=== PATIENT | female | born 1960 | race African-American/Black ===

== ENCOUNTER 2016-04-15 08:50 | Emergency (ER) | payer BC, OTHER ==
[2016-04-15 08:59] VITALS: BP 159/116; PULSE 79; TEMP 98.1; BMI 30.4
[2016-04-15] MEDS ORDERED: MECLIZINE HCL 25 MG TABLET (FP) PO ONE (09:42)
[2016-04-15] MEDS ORDERED: METOCLOPRAMIDE HCL INJECTION 10 MG/2 ML VIAL IVPUSH ONE (09:52)
[2016-04-15] MEDS ORDERED: METOCLOPRAMIDE HCL INJECTION 10 MG/2 ML VIAL ONE (10:36)
[2016-04-15] MEDS ORDERED: MECLIZINE HCL 25 MG TABLET (FP) ONE (10:36)
--- NOTE | 2016-04-15 10:45 | PDOC ---
History of Present Illness - General Chief Complaint: Injury Stated Complaint: FALL/ BODY ACHES, BACK PAIN Time Seen by Provider: 04/15/16 09:20 - History of Present Illness Initial Comments: 04/15/16 11:10 Patient is a 56-year-old female with no past medical history presenting to the ED today after falling on ice on Friday04/12/16. Patient states that while she was walking on her driveway she slipped on ice and her feet came out from underneath her. Patient states that she fell on her butt and then landed on her back and hit her head on the ice. Patient denies loss of consciousness at that time. She states that she felt dizzy after the fall. She is also complaining of headache 4 days. She's been taking ibuprofen for her pain with little relief. She currently rates her headache a 9 out of 10. She states that her neck and back have been very sore. She came in for evaluation today because she was worried that she was waking up with the same headache. The headache does not change in intensity for him lying down to sitting up. She denies photophobia phonophobia. Denies numbness and tingling. Denies fevers chills chest pain palpitations shortness of breath or cough nausea vomiting diarrhea. Past History - Past Medical History Allergies/Adverse Reactions: Allergies Allergy/AdvReac Type Severity Reaction Status Date / Time No Known Allergies Allergy Verified 04/15/16 08:53 Home Medications: Ambulatory Orders Cyclobenzaprine HCl [Flexeril -] 10 mg PO HS #10 tablet 04/15/16 Ibuprofen 800 mg PO TID #30 tablet 04/15/16 Meclizine HCl 25 mg PO BID #20 tablet 04/15/16 Other medical history: pt denies - Psycho/Social/Smoking Cessation Hx Suicidal Ideation: No Smoking History: Never smoked Have you smoked in the past 12 months: No Information on smoking cessation initiated: No Hx Alcohol Use: No Drug/Substance Use Hx: No Substance Use Type: None *Physical Exam - Vital Signs Last Vital Signs Temp Pulse Resp BP Pulse Ox 98.1 F 79 18 159/116 100 04/15/16 08:54 04/15/16 08:54 04/15/16 08:54 04/15/16 08:54 04/15/16 08:54 - Physical Exam Comments: 04/15/16 11:15 GENERAL: Well developed, well nourished. Awake and alert. No acute distress. HEENT: Normocephalic, atraumatic. PERRLA, EOMI. (-) racoon sign, walton sign. No conjunctival pallor. Sclera are non-icteric. Moist mucous membranes. Ear canals b/l are free of blood, TM are pearly hanson with good landmark and cone of light is present. Oropharynx is clear. NECK: Supple. Full ROM. (+) TTP of lateral neck and shoulders. No JVD. Carotid pulses 2+ and symmetric, without bruits. No thyromegaly. No lymphadenopathy. CARDIOVASCULAR: Regular rate and rhythm. No murmurs, rubs, or gallops. Distal pulses are 2+ and symmetric. PULMONARY: No evidence of respiratory distress. Lungs clear to auscultation bilaterally. No wheezing, rales or rhonchi. ABDOMINAL: Soft. Non-tender. Non-distended. No rebound or guarding. No organomegaly. Normoactive bowel sounds. MUSCULOSKELETAL Normal range of motion at all joints. No bony deformities or tenderness. No CVA tenderness. EXTREMITIES: No cyanosis. No clubbing. No edema. No calf tenderness. SKIN: Warm and dry. Normal capillary refill. No rashes. No jaundice. NEUROLOGICAL: Alert, awake, appropriate. Cranial nerves 2-12 intact. No deficits to light touch and temperature in face, upper extremities and lower extremities. No motor deficits in the in face, upper extremities and lower extremities. Normoreflexic in the upper and lower extremities. Normal speech. Toes are down- going bilaterally. Gait is normal without ataxia. (-) rhombergs sign. PSYCHIATRIC: Cooperative. Good eye contact. Appropriate mood and affect. ED Treatment Course - RADIOLOGY Radiology Studies Ordered: Category Date Time Status HEAD CT WITHOUT CONTRAST [CT] Stat CT Scan 04/15/16 09:50 Ordered SPINE-CERVICAL [RAD] Stat Radiology 04/15/16 09:52 Ordered SPINE-LUMBAR SACRAL [RAD] Stat Radiology 04/15/16 09:52 Ordered SPINE-THORACIC [RAD] Stat Radiology 04/15/16 09:52 Ordered - Medications Given in the ED: ED Medications Discontinued Medications Generic Name Dose Route Start Last Admin Trade Name Freq PRN Reason Stop Dose Admin Diphenhydramine HCl 12.5 mg 04/15/16 09:52 04/15/16 10:34 Benadryl Injection - IVPUSH 04/15/16 09:53 12.5 mg ONCE ONE Administration Meclizine HCl 25 mg 04/15/16 09:42 04/15/16 10:34 Antivert - PO 04/15/16 09:43 25 mg ONCE ONE Administration Metoclopramide HCl 10 mg 04/15/16 09:52 04/15/16 10:34 Reglan Injection - IVPUSH 04/15/16 09:53 10 mg ONCE ONE Administration Medical Decision Making - Medical Decision Making 04/15/16 11:19 Patient is a 56-year-old female presenting to the ED after slip and fall. She has no past medical history. Neurological exam is normal. Given that she's had a headache for the past 3 days with no relief and the traumatic slip and fall will evaluate for any bleed. We'll also obtain x-ray of C-spine and thoracic spine and lumbar sacral spine. We will give her Reglan and Benadryl for headache. We will reevaluate. 1. CT head, xray c-spine, thoracic spine, lumbosacral spine. 2. IV reglan with benadryl for headache 3. Re-evaluate 04/15/16 13:[address] shows no evidence of acute intracranial hemorrhage, edema, midline shift , mass effect, or skull fracture. No CT evidence of acute territorial infarction. C-spine x-ray shows no acute bony abnormalities. Multilevel chronic degenerative discogenic disease is present. No evidence of subluxation. Lumbar spine x-ray shows no acute bony abnormalities. No compression deformities spondylolisthesis seen. Thoracic spine x-ray shows no acute bony abnormalities. Discharge home at this time. There is no evidence of intracranial hemorrhage or skull fracture. No fractures are noted throughout the spine. Headache and dizziness is most likely due to concussive symptoms. Explained to patient that she may feel this way for up to 2 weeks. If the symptoms do not resolve within that time she should go see her primary care doctor. Patient feels better after headache medication and meclizine. We will discharge home with pain control and Flexeril and meclizine. *DC/Admit/Observation/Transfer Diagnosis at time of Disposition: Concussion Qualifiers: Encounter type: initial encounter Loss of consciousness presence/duration: without LOC Qualified Code(s): S06.0X0A - Concussion without loss of consciousness, initial encounter - Discharge Dispostion Disposition: HOME Condition at time of disposition: Good Admit: No - Prescriptions Prescriptions: Cyclobenzaprine HCl [Flexeril -] 10 mg PO HS #10 tablet Ibuprofen 800 mg PO TID #30 tablet Meclizine HCl 25 mg PO BID #20 tablet - Referrals Referrals: Live Holm MD [Primary Care Provider] - - Patient Instructions Printed Discharge Instructions: DI for Concussion Additional Instructions: You have a concussion. You may experience headache, dizziness for up to 2 weeks. Avoid activities that require close visual focus such as reading a book or cell phone. You were prescribed ibuprofen and flexaril for your muscle pain and spasm, and meclizine for the dizziness. Take as directed. If you have worsening dizziness, loss of consciousness return to the ED. - Post Discharge Activity Work/School Note: Back to Work
[2016-04-15 11:34] LABS: URINE APPEARANCE CLEAR; URINE BILIRUBIN NEGATIVE (NEGATIVE); URINE COLOR LTYELLOW; URINE GLUCOSE (UA) NEGATIVE (NEGATIVE); URINE KETONE NEGATIVE (NEGATIVE); URINE LEUK ESTERASE NEGATIVE (NEGATIVE); URINE NITRITE NEGATIVE (NEGATIVE); URINE PROTEIN NEGATIVE (NEGATIVE); URINE UROBILINOGEN NEGATIVE E.U./dl (0.2-1.0)
[2016-04-15 11:39] LABS: URINE BLOOD 1+ (NEGATIVE)
[2016-04-15 11:44] LABS: URINE MUCUS RARE; URINE RBC 1 /hpf (0-3); URINE WBC <1 /hpf (3-5)
== END 2016-04-15 15:13 | disposition home or self-care (01) ==
LOC: JER 08:50
PROC: 3E033GC Introduction of Other Therapeutic Substance into Peripheral Vein, Percutaneous Approach (ICD-10-PCS; principal; 2016-04-15)
DX: S06.0X0A Concussion without loss of consciousness, initial encounter (principal); G44.319 Acute post-traumatic headache, not intractable; M54.6 Pain in thoracic spine; M54.5 Low back pain; W00.0XXA Fall on same level due to ice and snow, initial encounter; Y93.89 Activity, other specified; Y92.038 Other place in apartment as the place of occurrence of the external cause
CPT/HCPCS: 70450-TC; 72050-TC; 72070-TC; 72100-TC; 81003; 81015; 96374; 96375; 99282-25

== ENCOUNTER 2018-12-30 08:29 | Emergency (ER) | payer OTHER ==
[2018-12-30 08:40] VITALS: BMI 31.0
[2018-12-30 09:02] VITALS: TEMP 97.8
[2018-12-30 10:21] LABS: PH,URINE 7.5 (5.0-8.0); URINE APPEARANCE CLEAR; URINE BILIRUBIN NEGATIVE (NEGATIVE); URINE COLOR YELLOW; URINE GLUCOSE (UA) NEGATIVE (NEGATIVE); URINE KETONE NEGATIVE (NEGATIVE); URINE LEUK ESTERASE NEGATIVE (NEGATIVE); URINE NITRITE NEGATIVE (NEGATIVE); URINE PROTEIN NEGATIVE (NEGATIVE)
[2018-12-30 10:21] LABS: BASO % 0.6 % (0-2.0); EOS % 1.3 % (0-4.5); HEMATOCRIT 41.5 % (32.4-45.2); HEMOGLOBIN 13.6 GM/dL (10.7-15.3); LYMPH % 44.1 % (8-40); MCHC 32.7 g/dl (32.0-36.0); MEAN CELL VOLUME 85.4 fl (80-96); MEAN PLT VOLUME 8.8 fl (7.5-11.1); MONO % 6.3 % (3.8-10.2); NEUT % 47.7 % (42.8-82.8); PLATELET COUNT 198 K/MM3 (134-434); RBC 4.86 M/mm3 (3.60-5.2); RDW 13.9 % (11.6-15.6); WHITE BLOOD COUNT 4.8 K/mm3 (4.0-10.0)
[2018-12-30 10:54] LABS: ALBUMIN 3.9 g/dl (3.4-5.0); ALK PHOS 94 U/L (45-117); ANION GAP 5 MMOL/L (8-16); BILIRUBIN,TOTAL 0.5 mg/dL (0.2-1); BLOOD UREA NITROGEN 12.2 mg/dL (7-18); CALCIUM 9.6 mg/dL (8.5-10.1); CHLORIDE 105 mmol/L (98-107); CO2 30 mmol/L (21-32); CREATININE 0.8 mg/dL (0.55-1.3); GLUCOSE,RANDOM 96 mg/dL (74-106); MAGNESIUM 2.2 mg/dL (1.8-2.4); POTASSIUM 4.7 mmol/L (3.5-5.1); SGOT/AST 18 U/L (15-37); SGPT/ALT 24 U/L (13-61); SODIUM 140 mmol/L (136-145); TOT PROT 7.6 g/dl (6.4-8.2)
[2018-12-30 10:58] LABS: N-TERMINAL BNP 14.6 pg/ml (5-125)
[2018-12-30] MEDS ORDERED: amLODIPine BESYLATE 5 MG TABLET (FP) PO ONE (11:46)
--- NOTE | 2018-12-30 11:48 | PDOC ---
Documentation entered by Katherine Jiménez SCRIBE, acting as scribe for Thelma Fiore MD. Thelma Fiore MD: This documentation has been prepared by the Tino hoskins Sammi, SCRIBE, under my direction and personally reviewed by me in its entirety. I confirm that the documentation accurately reflects all work, treatment, procedures, and medical decision making performed by me. History of Present Illness - General Chief Complaint: Blood Pressure Problem Stated Complaint: HYPERTENSION Time Seen by Provider: 12/30/18 09:24 - History of Present Illness Initial Comments: 12/30/18 11:16 The patient is a 58 year old female, with a significant PMH of HTN (non- compliant with medication), who presents to the emergency department for evaluation of high blood pressure. The patient states upon waking up this morning she experienced palpitations after thinking about a stressful situation at work and checked her blood pressure which was 209/112, prompting her to come to the ED for evaluation. She also notes she has been experiencing dull, gradual onset, intermittent headaches intermittently for the past week which are relieved with tylenol. Denies blurry vision, focal weakness/numbness, dizziness, stiff neck. The headaches occur at any time of the day. The patient follows with Dr. Cotto who prescribed her BP medication earlier this week which she stopped taking because "she felt well". At this time patient denies headache or palpitations. Denies chest pain or shortness of breath. Denies fever, chills, abdominal pain, nausea, vomiting, diarrhea and constipation. Denies dysuria, frequency, urgency and hematuria. DEnies LE edema. PCP: Dr. Cotto Medical history: HTN Social history: None smoker Allergies: NKA Past History - Past Medical History Allergies/Adverse Reactions: Allergies Allergy/AdvReac Type Severity Reaction Status Date / Time No Known Allergies Allergy Verified 12/30/18 08:41 Home Medications: Ambulatory Orders Amlodipine Besylate 5 mg PO DAILY #10 tablet 12/30/18 COPD: No HTN: Yes Hypercholesterolemia: Yes - Psycho Social/Smoking Cessation Hx Smoking History: Never smoked Have you smoked in the past 12 months: No Information on smoking cessation initiated: No Hx Alcohol Use: No Drug/Substance Use Hx: No Substance Use Type: None Review of Systems - Review of Systems Comments:: 12/30/18 11:24 GENERAL/CONSTITUTIONAL: No fever or chills. No weakness. HEAD, EYES, EARS, NOSE AND THROAT: No change in vision. No ear pain or discharge. No sore throat. GASTROINTESTINAL: No nausea, vomiting, diarrhea or constipation. GENITOURINARY: No dysuria, frequency, or change in urination. CARDIOVASCULAR: +palpitations. No chest pain or shortness of breath. RESPIRATORY: No cough, wheezing, or hemoptysis. MUSCULOSKELETAL: No joint or muscle swelling or pain. No neck or back pain. SKIN: No rash NEUROLOGIC: +headache. No vertigo, loss of consciousness, or change in strength/ sensation. *Physical Exam - Vital Signs Last Vital Signs Temp Pulse Resp BP Pulse Ox 97.8 F 84 20 166/111 H 96 12/30/18 08:58 12/30/18 08:58 12/30/18 08:58 12/30/18 08:58 12/30/18 08:58 - Physical Exam Comments: 12/30/18 11:37 GENERAL: Awake, alert, and fully oriented, in no acute distress HEAD: No signs of trauma EYES: PERRLA, EOMI, sclera anicteric, conjunctiva clear ENT: Nares patent, oropharynx clear without exudates. Moist mucosa NECK: Normal ROM, supple, no lymphadenopathy, JVD, or masses LUNGS: Breath sounds equal, clear to auscultation bilaterally. No wheezes, and no crackles HEART: Regular rate and rhythm, normal S1 and S2, no murmurs, rubs or gallops ABDOMEN: Soft, nontender, normoactive bowel sounds. No guarding, no rebound. No masses EXTREMITIES: Normal range of motion, no edema. No cords, erythema, or tenderness NEUROLOGICAL: Normal speech, cranial nerves intact, negative pronator drift, 5/ 5 strength in all 4 extremities, normal sensation to light touch in all 4 extremities, normal cerebellar exam, normal gait, normal tone SKIN: Warm, Dry, normal turgor, no rashes or lesions noted. Heart Score/ECG Review #1 12/30/18 11:47 Twelve-lead EKG was performed and reviewed by me. Normal sinus rhythm, rate 90. Normal axis and intervals. No ST elevations or T wave inversions. ED Treatment Course - LABORATORY CBC & Chemistry Diagram: 12/30/18 10:14 12/30/18 10:14 - ADDITIONAL ORDERS Additional order review: Laboratory Results 12/30/18 12/30/18 12/30/18 10:14 10:14 08:50 Sodium 140 Potassium 4.7 Chloride 105 Carbon Dioxide 30 Anion Gap 5 L BUN 12.2 Creatinine 0.8 Est GFR (CKD-EPI)AfAm 95.52 Est GFR (CKD-EPI)NonAf 82.42 Random Glucose 96 Calcium 9.6 Magnesium 2.2 Total Bilirubin 0.5 AST 18 ALT 24 Alkaline Phosphatase 94 Troponin I < 0.02 B-Natriuretic Peptide 14.6 Total Protein 7.6 Albumin 3.9 TSH 1.16 Urine Color Yellow Urine Appearance Clear Urine pH 7.5 D Ur Specific [place] 1.018 Urine Protein Negative Urine Glucose (UA) Negative Urine Ketones Negative Urine Blood Negative Urine Nitrite Negative Urine Bilirubin Negative Urine Urobilinogen 1.0 Ur Leukocyte Esterase Negative 12/30/18 10:14 RBC 4.86 MCV 85.4 MCHC 32.7 RDW 13.9 MPV 8.8 Neutrophils % 47.7 Lymphocytes % 44.1 H Monocytes % 6.3 Eosinophils % 1.3 Basophils % 0.6 - RADIOLOGY Radiology Studies Ordered: Category Date Time Status HEAD CT WITHOUT CONTRAST [CT] Stat CT Scan 12/30/18 11:08 Taken CHEST X-RAY PORTABLE* [RAD] Stat Radiology 12/30/18 09:48 Completed Medical Decision Making - Medical Decision Making 12/30/18 11:12 Spoke with [facility]. Patient last refilled her BP medication in July of 2018. Atenolol 50mg daily Amlodipine-benazepril 5-20mg daily 12/30/18 11:18 58-year-old female with history of hypertension, noncompliant with medications presents the emergency department with elevated blood pressure as well as intermittent palpitations and headaches. She is currently asymptomatic. Patient reports palpitations resolved on the way to the emergency department, has had no events on telemetry here in the emergency department. Headaches resolved with Tylenol, and have no red flag symptoms such as thunderclap, severe or sudden onset. Neurologic exam is within normal limits. Plan for labs, urinalysis, CT head, EKG looking for end-organ damage. Spoke with patient's pharmacy to find out which medications she was on, will likely initiate amlodipine to start so as not to drop BP too quickly 12/30/18 11:48 Labs, urinalysis unremarkable. CT head negative. Likely hypertensive urgency. Patient given home dose of amlodipine 5mg. Advised to follow-up with Dr. Cotto within 1 week for reevaluation of blood pressure Patient is asymptomatic, feels well and is eager for discharge home. I discussed the physical exam findings, ancillary test results and final diagnoses with the patient. I answered all of the patient's questions. The patient was satisfied with the care received and felt comfortable with the discharge plan and treatment plan. The patient will call their primary care physician within 24 hours to arrange follow-up and will return to the Emergency Department with any new, persistent or worsening symptoms. Discharge - Discharge Information Problems reviewed: Yes Clinical Impression/Diagnosis: Elevated blood pressure reading, Headache, Palpitations Condition: Improved Disposition: HOME - Admission No - Follow up/Referral Referrals: Jan Cotto MD [Primary Care Provider] - - Patient Discharge Instructions Patient Printed Discharge Instructions: DI for High Blood Pressure Additional Instructions: You were seen in the emergency department today for an elevated blood pressure reading at home. Your blood work, urinalysis, CT head, EKG were all unremarkable. You must take your blood pressure medications daily. I have prescribed a 10 day course of one of your blood pressure medications to hold you over until you follow-up with Dr. Cotto. Please follow-up within the next week for recheck of your blood pressure and for possible re-initiation of your other blood pressure medications. Return to the emergency department if you have any new, worsening or concerning symptoms. - Post Discharge Activity
[2018-12-30] MEDS ORDERED: amLODIPine BESYLATE 5 MG TABLET (FP) ONE (11:55)
[2018-12-30 12:21] VITALS: BP 163/90; PULSE 74
--- NOTE | 2018-12-30 12:49 | EKG ---
Test Reason : Blood Pressure : / mmHG Vent. Rate : 090 BPM Atrial Rate : 090 BPM P-R Int : 202 ms QRS Dur : 080 ms QT Int : 376 ms P-R-T Axes : 054 048 023 degrees QTc Int : 459 ms NORMAL SINUS RHYTHM NORMAL ECG NO PREVIOUS ECGS AVAILABLE Confirmed by JULISSA PAK, EMMA ([id number]) on 12/30/2018 12:49:31 PM Referred By: Confirmed By:EMMA COSTA MD
== END 2018-12-30 12:25 | disposition home or self-care (01) ==
LOC: JER 08:29
DX: Z01.31 Encounter for examination of blood pressure with abnormal findings (principal); R51 Headache; R00.2 Palpitations
CPT/HCPCS: 36415; 70450-TC; 71045-TC-FY; 80053; 81003; 83735; 83880; 84443; 84484; 85025; 93005; 93010; 99284-25

== ENCOUNTER 2022-03-04 11:30 | Emergency (ER) | payer OTHER ==
[2022-03-04 11:40] VITALS: BP 162/84; PULSE 68; RESP 18; TEMP 98.2; BMI 32.1
[2022-03-04] MEDS ORDERED: IBUPROFEN 600 MG TABLET (FP) PO ONE ×2 (13:00→13:01)
[2022-03-04] MEDS ORDERED: ACETAMINOPHEN 500 MG TABLET (FP) PO ONE (13:43)
[2022-03-04] MEDS ORDERED: ACETAMINOPHEN 500 MG TABLET (FP) ONE (13:44)
== END 2022-03-04 13:47 | disposition home or self-care (01) ==
LOC: JERFT 11:30
DX: M77.31 Calcaneal spur, right foot (principal)
CPT/HCPCS: 73610-TC-RT-FY; 73630-TC-RT-FY; 99283-25

== ENCOUNTER 2022-07-19 09:55 | Observation (INO) | payer OTHER ==
[2022-07-19 10:15] VITALS: BMI 28.0
[2022-07-19] MEDS ORDERED: ONDANSETRON 4 MG/2 ML VIAL IVPUSH ONE ×2 (10:45→17:21)
[2022-07-19] MEDS ORDERED: morphine CARPU-JECT 4 MG/1 ML DISP.SYRIN IVPUSH ONE ×3 (10:45→17:11)
[2022-07-19] MEDS ORDERED: SODIUM CHLORIDE 1,000 ML IV STA (10:45)
[2022-07-19] MEDS ORDERED: morphine SULFATE 4 MG/ML VIAL ONE ×2 (10:52→11:18)
[2022-07-19] MEDS ORDERED: ONDANSETRON 4 MG/2 ML VIAL ONE ×3 (10:52→17:35)
[2022-07-19] MEDS ORDERED: PANTOPRAZOLE SODIUM 40 MG in SODIUM CHLORIDE 100 ML IVPB ONE (11:02)
[2022-07-19] MEDS ORDERED: PANTOPRAZOLE SODIUM 40 MG VIAL ONE (11:19)
[2022-07-19] MEDS ORDERED: PANTOPRAZOLE SODIUM 40 MG/100 ML BAG IVPB ONE (11:56)
[2022-07-19 12:55] LABS: BASO % 0.6 % (0-2.0); EOS % 0.5 % (0-4.5); MCHC 32.5 g/dl (32.0-36.0); MEAN CELL VOLUME 86.2 fl (80-96); MEAN PLT VOLUME 8.1 fl (7.5-11.1); MONO % 2.9 % (3.8-10.2); PLATELET COUNT 100 10^3/uL (134-434); RBC 2.33 M/mm3 (3.60-5.2); RDW 13.6 % (11.6-15.6); WHITE BLOOD COUNT 3.1 K/mm3 (4.0-10.0)
[2022-07-19 12:58] LABS: HEMOGLOBIN 6.5 GM/dL (10.7-15.3)
[2022-07-19 13:01] LABS: INR 1.57 (0.83-1.09); PROTHROMBIN TIME (PATIENT) 18.1 SEC (9.7-13.0)
[2022-07-19 13:04] LABS: ACTIVATED PTT 23.2 SECONDS (25.2-36.5)
[2022-07-19 13:22] LABS: CHLORIDE 126 mmol/L (98-107); SODIUM 150 mmol/L (136-145)
[2022-07-19 13:25] LABS: ALBUMIN 2.2 g/dl (3.4-5.0); BLOOD UREA NITROGEN 6.5 mg/dL (7-18); CO2 15 mmol/L (21-32); GLUCOSE,RANDOM 65 mg/dL (74-106); LIPASE 36 U/L (73-393)
[2022-07-19 13:27] LABS: SGPT/ALT 14 U/L (13-61)
[2022-07-19 13:28] LABS: CREATININE 0.2 mg/dL (0.55-1.3); SGOT/AST 6 U/L (15-37)
[2022-07-19 13:29] LABS: TOT PROT 4.4 g/dl (6.4-8.2)
[2022-07-19 13:30] LABS: BILIRUBIN,TOTAL 0.3 mg/dL (0.2-1)
[2022-07-19 13:31] LABS: ALK PHOS 53 U/L (45-117)
[2022-07-19 13:41] LABS: ANION GAP 9 MMOL/L (8-16); POTASSIUM 1.9 mmol/L (3.5-5.1)
[2022-07-19 15:39] LABS: EPI CELLS 11 /uL (0-25.1); HYALINE CASTS 0 /uL (0-3.1); PH,URINE 6.5 (5.0-8.0); URINE APPEARANCE CLEAR; URINE BACTERIA 98 /uL (0-1359); URINE BILIRUBIN NEGATIVE (NEGATIVE); URINE COLOR YELLOW; URINE GLUCOSE (UA) NEGATIVE (NEGATIVE); URINE KETONE 2+ (NEGATIVE); URINE LEUK ESTERASE NEGATIVE (NEGATIVE); URINE NITRITE NEGATIVE (NEGATIVE); URINE PROTEIN NEGATIVE (NEGATIVE); URINE RBC 32 /uL (0-23.9); URINE WBC 6 /uL (0-25.8)
[2022-07-19 15:49] LABS: BLOOD UREA NITROGEN 9.8 mg/dL (7-18)
[2022-07-19 15:53] LABS: CREATININE 0.7 mg/dL (0.55-1.3)
[2022-07-19 15:54] LABS: BILIRUBIN,TOTAL 0.6 mg/dL (0.2-1)
[2022-07-19 16:07] LABS: ALBUMIN 4.3 g/dl (3.4-5.0); CALCIUM 9.7 mg/dL (8.5-10.1); TOT PROT 8.6 g/dl (6.4-8.2)
[2022-07-19] MEDS ORDERED: ACETAMINOPHEN 1000 MG/100 ML BAG IVPB ONE (17:11)
[2022-07-19] MEDS ORDERED: ACETAMINOPHEN INJECTION 100 ML IVPB ONE ×2 (17:14→17:24)
[2022-07-19] MEDS ORDERED: PANTOPRAZOLE SODIUM 40 MG VIAL IVPUSH ONE (21:30)
[2022-07-19] MEDS ORDERED: SODIUM CHLORIDE 1,000 ML IV SCH (21:45)
[2022-07-19] MEDS ORDERED: SODIUM CHLORIDE 0.45% 1,000 ML IV SCH (21:45)
[2022-07-19 22:05] LABS: HEMATOCRIT 43.2 % (32.4-45.2); HEMOGLOBIN 14.6 GM/dL (10.7-15.3); MCH 27.9 pg (25.7-33.7); MCHC 33.7 g/dl (32.0-36.0); MEAN CELL VOLUME 82.8 fl (80-96); MEAN PLT VOLUME 8.1 fl (7.5-11.1); PLATELET COUNT 259 10^3/uL (134-434); RBC 5.22 M/mm3 (3.60-5.2); WHITE BLOOD COUNT 8.3 K/mm3 (4.0-10.0)
[2022-07-19] MEDS: SODIUM CHLORIDE 1,000 ML IV SCH (22:33)
[2022-07-19] MEDS: ACETAMINOPHEN 1000 MG/100 ML BAG IVPB PRN (22:54)
[2022-07-19] MEDS ORDERED: hydrALAZINE HCL 20 MG/ML VIAL IVPUSH ONE (23:59)
[2022-07-20] MEDS: ONDANSETRON 4 MG/2 ML VIAL IVPUSH PRN ×4 (00:56→18:06)
[2022-07-20] MEDS ORDERED: SUCRALFATE 1 GM/10 ML UNIT DOSE CUPS PO SCH (02:00)
[2022-07-20 09:09] LABS: HEMATOCRIT 40.6 % (32.4-45.2); HEMOGLOBIN 14.2 GM/dL (10.7-15.3); MCH 28.8 pg (25.7-33.7); MCHC 34.9 g/dl (32.0-36.0); MEAN CELL VOLUME 82.3 fl (80-96); MEAN PLT VOLUME 8.9 fl (7.5-11.1); PLATELET COUNT 232 10^3/uL (134-434); RBC 4.93 M/mm3 (3.60-5.2); RDW 13.9 % (11.6-15.6); WHITE BLOOD COUNT 8.5 K/mm3 (4.0-10.0)
[2022-07-20 09:30] LABS: POTASSIUM 3.3 mmol/L (3.5-5.1)
[2022-07-20 10:01] LABS: CALCIUM 9.7 mg/dL (8.5-10.1)
[2022-07-20 10:02] LABS: ALBUMIN 4.3 g/dl (3.4-5.0)
[2022-07-20] MEDS: PANTOPRAZOLE SODIUM 40 MG VIAL IVPUSH SCH ×2 (10:02→22:05)
[2022-07-20] MEDS: ATENOLOL 50 MG TABLET (FP) PO SCH (10:03)
[2022-07-20] MEDS: LISINOPRIL 20 MG TABLET PO SCH (10:03)
[2022-07-20] MEDS: amLODIPine BESYLATE 10 MG TABLET (FP) PO SCH (10:03)
[2022-07-20 10:04] LABS: CREATININE 0.8 mg/dL (0.55-1.3); PHOSPHOROUS 3.4 mg/dL (2.5-4.9); URIC ACID 7.8 mg/dL (2.6-7.2)
[2022-07-20 10:05] LABS: BILIRUBIN,TOTAL 0.7 mg/dL (0.2-1)
[2022-07-20 10:06] LABS: TOT PROT 8.3 g/dl (6.4-8.2)
[2022-07-20] MEDS: SODIUM CHLORIDE 1,000 ML IV SCH (10:07)
[2022-07-20] MEDS ORDERED: POTASSIUM CHLORIDE TABS 20 MEQ TABLET.ER (FP) PO ONE (10:45)
[2022-07-20 11:30] LABS: COCAINE, UR NEGATIVE (NEGATIVE); METHADONE, UR NEGATIVE (NEGATIVE); PHENCYCLIDINE,URINE NEGATIVE (NEGATIVE); URINE AMPHETAMINES NEGATIVE (NEGATIVE); URINE BENZODIAZEPINES NEGATIVE (NEGATIVE)
[2022-07-20 11:31] LABS: URINE BARBITURATES NEGATIVE (NEGATIVE)
[2022-07-20 11:40] LABS: OPIATES, URI POSITIVE (NEGATIVE)
[2022-07-20] MEDS: ACETAMINOPHEN 1000 MG/100 ML BAG IVPB PRN (11:48)
[2022-07-20] MEDS ORDERED: ACETAMINOPHEN 1000 MG/100 ML BAG IVPB PRN (13:04)
[2022-07-20] MEDS: SUCRALFATE 1 GM/10 ML UNIT DOSE CUPS PO SCH ×3 (14:06→22:05)
[2022-07-20] MEDS ORDERED: PANTOPRAZOLE 40 MG TABLET PO SCH (22:00)
[2022-07-21] MEDS: SODIUM CHLORIDE 1,000 ML IV SCH ×4 (00:38→22:16)
[2022-07-21] MEDS: ONDANSETRON 4 MG/2 ML VIAL IVPUSH PRN ×4 (02:34→18:01)
[2022-07-21] MEDS: amLODIPine BESYLATE 10 MG TABLET (FP) PO SCH (09:30)
[2022-07-21] MEDS: PANTOPRAZOLE SODIUM 40 MG VIAL IVPUSH SCH ×3 (09:30→21:02)
[2022-07-21] MEDS: SUCRALFATE 1 GM/10 ML UNIT DOSE CUPS PO SCH ×5 (09:30→21:02)
[2022-07-21] MEDS: ATENOLOL 50 MG TABLET (FP) PO SCH (09:30)
[2022-07-21] MEDS: LISINOPRIL 20 MG TABLET PO SCH (09:30)
[2022-07-21 10:45] LABS: BASO % 0.6 % (0-2.0); EOS % 0.2 % (0-4.5); HEMATOCRIT 42.6 % (32.4-45.2); HEMOGLOBIN 14.8 GM/dL (10.7-15.3); LYMPH % 31.7 % (8-40); MCH 28.6 pg (25.7-33.7); MCHC 34.7 g/dl (32.0-36.0); MEAN CELL VOLUME 82.4 fl (80-96); MONO % 5.8 % (3.8-10.2); NEUT % 61.7 % (42.8-82.8); PLATELET COUNT 245 10^3/uL (134-434); RBC 5.17 M/mm3 (3.60-5.2); WHITE BLOOD COUNT 5.3 K/mm3 (4.0-10.0)
[2022-07-21 11:00] LABS: POTASSIUM 4.2 mmol/L (3.5-5.1)
[2022-07-21 11:02] LABS: ALBUMIN 4.1 g/dl (3.4-5.0); CALCIUM 9.5 mg/dL (8.5-10.1)
[2022-07-21 11:03] LABS: MAGNESIUM 2.1 mg/dL (1.8-2.4)
[2022-07-21 11:06] LABS: CREATININE 0.8 mg/dL (0.55-1.3)
[2022-07-21 11:07] LABS: BILIRUBIN,TOTAL 1.1 mg/dL (0.2-1); TOT PROT 8.3 g/dl (6.4-8.2)
[2022-07-22 09:05] LABS: BASO % 0.4 % (0-2.0); EOS % 0.6 % (0-4.5); HEMATOCRIT 39.8 % (32.4-45.2); HEMOGLOBIN 13.9 GM/dL (10.7-15.3); LYMPH % 38.4 % (8-40); MCH 28.6 pg (25.7-33.7); MCHC 34.9 g/dl (32.0-36.0); MEAN CELL VOLUME 81.9 fl (80-96); MONO % 6.7 % (3.8-10.2); NEUT % 53.9 % (42.8-82.8); PLATELET COUNT 228 10^3/uL (134-434); RBC 4.86 M/mm3 (3.60-5.2); RDW 13.6 % (11.6-15.6); WHITE BLOOD COUNT 5.4 K/mm3 (4.0-10.0)
[2022-07-22 09:21] LABS: POTASSIUM 3.5 mmol/L (3.5-5.1)
[2022-07-22 09:23] LABS: ALBUMIN 3.6 g/dl (3.4-5.0); CALCIUM 9.2 mg/dL (8.5-10.1); MAGNESIUM 2.1 mg/dL (1.8-2.4)
[2022-07-22 09:24] LABS: BLOOD UREA NITROGEN 14.7 mg/dL (7-18)
[2022-07-22 09:28] LABS: CREATININE 1.2 mg/dL (0.55-1.3)
[2022-07-22 09:29] LABS: BILIRUBIN,TOTAL 0.8 mg/dL (0.2-1); TOT PROT 7.2 g/dl (6.4-8.2)
[2022-07-22] MEDS: amLODIPine BESYLATE 10 MG TABLET (FP) PO SCH (10:19)
[2022-07-22] MEDS: LISINOPRIL 20 MG TABLET PO SCH (10:19)
[2022-07-22] MEDS: ATENOLOL 50 MG TABLET (FP) PO SCH (10:19)
[2022-07-22] MEDS: PANTOPRAZOLE SODIUM 40 MG VIAL IVPUSH SCH (10:19)
[2022-07-22] MEDS: SUCRALFATE 1 GM/10 ML UNIT DOSE CUPS PO SCH (10:19)
[2022-07-22] MEDS ORDERED: ACETAMINOPHEN 325 MG TABLET (FP) PO PRN (13:11)
[2022-07-22] MEDS: ONDANSETRON 4 MG/2 ML VIAL IVPUSH PRN ×2 (13:53→22:08)
[2022-07-22] MEDS: POLYETHYLENE GLYCOL (HEALTHYLAX) 3350 17 GM PACKET PO SCH ×2 (13:54→22:08)
[2022-07-22] MEDS: PANTOPRAZOLE 40 MG TABLET PO SCH ×2 (13:55→22:08)
[2022-07-22] MEDS: MAGNESIUM CITRATE 300 ML BOTTLE PO ONE ×2 (14:08→16:01)
[2022-07-22 20:13] LABS: BASO % 0.6 % (0-2.0); EOS % 0.2 % (0-4.5); HEMATOCRIT 43.9 % (32.4-45.2); LYMPH % 21.9 % (8-40); MCHC 34.2 g/dl (32.0-36.0); MEAN CELL VOLUME 81.9 fl (80-96); MEAN PLT VOLUME 7.8 fl (7.5-11.1); NEUT % 73.3 % (42.8-82.8); PLATELET COUNT 271 10^3/uL (134-434); RBC 5.36 M/mm3 (3.60-5.2); RDW 13.7 % (11.6-15.6); WHITE BLOOD COUNT 6.6 K/mm3 (4.0-10.0)
[2022-07-22 20:24] LABS: INR 1.1 (0.83-1.09); PROTHROMBIN TIME (PATIENT) 12.8 SEC (9.7-13.0)
[2022-07-22 20:43] LABS: POTASSIUM 3.9 mmol/L (3.5-5.1)
[2022-07-22 20:44] LABS: CALCIUM 9.7 mg/dL (8.5-10.1)
[2022-07-22 20:49] LABS: CREATININE 0.9 mg/dL (0.55-1.3)
[2022-07-23] MEDS: SODIUM CHLORIDE 1,000 ML IV SCH (05:13)
[2022-07-23] MEDS: POLYETHYLENE GLYCOL (HEALTHYLAX) 3350 17 GM PACKET PO SCH ×2 (05:14→13:49)
[2022-07-23] MEDS: ONDANSETRON 4 MG/2 ML VIAL IVPUSH PRN (05:24)
[2022-07-23 09:14] LABS: BASO % 0.6 % (0-2.0); EOS % 0.1 % (0-4.5); HEMATOCRIT 42.4 % (32.4-45.2); HEMOGLOBIN 15.1 GM/dL (10.7-15.3); MCH 29.2 pg (25.7-33.7); MCHC 35.6 g/dl (32.0-36.0); MEAN CELL VOLUME 82.2 fl (80-96); MEAN PLT VOLUME 8.7 fl (7.5-11.1); MONO % 6.4 % (3.8-10.2); NEUT % 58.9 % (42.8-82.8); PLATELET COUNT 265 10^3/uL (134-434); RBC 5.16 M/mm3 (3.60-5.2); RDW 13.7 % (11.6-15.6); WHITE BLOOD COUNT 6.1 K/mm3 (4.0-10.0)
[2022-07-23 09:43] LABS: POTASSIUM 4.1 mmol/L (3.5-5.1)
[2022-07-23 09:54] LABS: ALBUMIN 4.1 g/dl (3.4-5.0)
[2022-07-23 09:55] LABS: CALCIUM 10.4 mg/dL (8.5-10.1)
[2022-07-23 09:56] LABS: MAGNESIUM 2.5 mg/dL (1.8-2.4)
[2022-07-23 09:58] LABS: CREATININE 1.3 mg/dL (0.55-1.3)
[2022-07-23 09:59] LABS: BILIRUBIN,TOTAL 0.9 mg/dL (0.2-1)
[2022-07-23 10:00] LABS: TOT PROT 8.2 g/dl (6.4-8.2)
[2022-07-23] MEDS: LISINOPRIL 20 MG TABLET PO SCH (11:13)
[2022-07-23] MEDS: PANTOPRAZOLE 40 MG TABLET PO SCH (11:13)
[2022-07-23] MEDS: ATENOLOL 50 MG TABLET (FP) PO SCH (11:13)
[2022-07-23] MEDS: amLODIPine BESYLATE 10 MG TABLET (FP) PO SCH (11:13)
[2022-07-23 14:50] VITALS: BP 111/64; PULSE 64; RESP 20; TEMP 98.1
== END 2022-07-23 13:50 | disposition home or self-care (01) ==
LOC: JER 09:55 → UNDOADMOB 17:51 → INTOOBSV 17:51 → JERBED 17:51 → J8W 20:40 → JERBED 21:30
PROVIDERS: ADMIT Internal Medicine; ATTEND Nurse Practitioner Family
PROC: 3E033NZ Introduction of Analgesics, Hypnotics, Sedatives into Peripheral Vein, Percutaneous Approach (ICD-10-PCS; principal; 2022-07-19)
PROC: 3E033GC Introduction of Other Therapeutic Substance into Peripheral Vein, Percutaneous Approach (ICD-10-PCS; 2022-07-19)
PROC: 3E0337Z Introduction of Electrolytic and Water Balance Substance into Peripheral Vein, Percutaneous Approach (ICD-10-PCS; 2022-07-19)
DX: R10.13 Epigastric pain (principal); I10 Essential (primary) hypertension; Z29.8 Encounter for other specified prophylactic measures; K59.00 Constipation, unspecified; R11.2 Nausea with vomiting, unspecified; Z88.6 Allergy status to analgesic agent
CPT/HCPCS: 0241U-QW; 36415; 71045-TC-FY; 74176-TC; 74177-TC; 80048; 80053; 80307; 81003; 82272; 83690; 83735; 84100; 84484; 84550; 85025; 85027; 85610; 85730; 86431; 86709; 86803; 86850; 86900; 86901; 87340; 87517; 88305-TC; 88341-TC; 93005; 93010; 96361; 96365; 96375; 96376; 99285-25; G0378; Q9967

== ENCOUNTER 2022-09-16 16:23 | Emergency (ER) | payer OTHER ==
[2022-09-16 16:33] VITALS: BP 136/84; PULSE 66; RESP 18; TEMP 98; BMI 29.5
[2022-09-16] MEDS ORDERED: DIPHTH,PERTUSS(ACELL),TET 0.5 ML DISP.SYRIN IM ONE ×2 (18:09)
== END 2022-09-16 19:26 | disposition home or self-care (01) ==
LOC: JERFT 16:23
PROC: 0HQLXZZ Repair Left Lower Leg Skin, External Approach (ICD-10-PCS; principal; 2022-09-16)
PROC: 3E0234Z Introduction of Serum, Toxoid and Vaccine into Muscle, Percutaneous Approach (ICD-10-PCS; 2022-09-16)
DX: S81.812A Laceration without foreign body, left lower leg, initial encounter (principal); W25.XXXA Contact with sharp glass, initial encounter; Y99.0 Civilian activity done for income or pay
CPT/HCPCS: 12001-25; 73590-TC-LT-FY; 90471; 90715; 99283-25

== ENCOUNTER 2022-09-30 13:36 | Emergency (ER) | payer OTHER ==
[2022-09-30 13:47] VITALS: BP 146/89; PULSE 73; RESP 18; TEMP 98.1; BMI 30.4
== END 2022-09-30 14:03 | disposition home or self-care (01) ==
LOC: JERFT 13:36
DX: Z48.02 Encounter for removal of sutures (principal)
CPT/HCPCS: 99281-25

== ENCOUNTER 2023-07-21 10:39 | Emergency (ER) | payer OTHER ==
[2023-07-21 11:10] VITALS: PULSE 86; RESP 18; TEMP 98; BMI 20.5
[2023-07-21] MEDS ORDERED: amLODIPine BESYLATE 10 MG TABLET (FP) ONE (11:43)
[2023-07-21] MEDS: amLODIPine BESYLATE 10 MG TABLET (FP) PO ONE (12:10)
[2023-07-21 12:26] LABS: BASO % 0.7 % (0-2.0); HEMATOCRIT 40.1 % (32.4-45.2); HEMOGLOBIN 13.2 GM/dL (10.7-15.3); MCH 28.4 pg (25.7-33.7); MCHC 32.8 g/dl (32.0-36.0); MEAN CELL VOLUME 86.5 fl (80-96); MEAN PLT VOLUME 8.3 fl (7.5-11.1); MONO % 4.6 % (3.8-10.2); NEUT % 62.7 % (42.8-82.8); PLATELET COUNT 190 10^3/uL (134-434); RBC 4.64 M/mm3 (3.60-5.2); RDW 13.8 % (11.6-15.6); WHITE BLOOD COUNT 7.3 K/mm3 (4.0-10.0)
[2023-07-21 12:27] LABS: PH,URINE 6.5 (5.0-8.0); URINE APPEARANCE CLEAR; URINE BILIRUBIN NEGATIVE (NEGATIVE); URINE COLOR YELLOW; URINE GLUCOSE (UA) NEGATIVE (NEGATIVE); URINE KETONE NEGATIVE (NEGATIVE); URINE LEUK ESTERASE NEGATIVE (NEGATIVE); URINE NITRITE NEGATIVE (NEGATIVE); URINE PROTEIN NEGATIVE (NEGATIVE)
[2023-07-21 12:52] LABS: CHLORIDE 106 mmol/L (98-107); SODIUM 140 mmol/L (136-145)
[2023-07-21 12:55] LABS: CALCIUM 8.8 mg/dL (8.5-10.1); CO2 29 mmol/L (21-32); GLUCOSE,RANDOM 78 mg/dL (74-106)
[2023-07-21 12:56] LABS: MAGNESIUM 2.1 mg/dL (1.8-2.4)
[2023-07-21 12:57] LABS: CREATININE 0.7 mg/dL (0.55-1.3)
[2023-07-21 12:58] LABS: SGOT/AST 33 U/L (15-37)
[2023-07-21 12:59] LABS: BILIRUBIN,TOTAL 0.7 mg/dL (0.2-1); SGPT/ALT 24 U/L (13-61); TOT PROT 8.1 g/dl (6.4-8.2)
[2023-07-21 13:00] LABS: ALK PHOS 100 U/L (45-117)
[2023-07-21 13:01] LABS: ANION GAP 6 mmol/L (4-13); POTASSIUM 6.3 mmol/L (3.5-5.1)
[2023-07-21 13:58] LABS: POTASSIUM 4.4 mmol/L (3.5-5.1)
[2023-07-21 13:59] LABS: CALCIUM 9.2 mg/dL (8.5-10.1)
[2023-07-21 14:03] LABS: CREATININE 0.7 mg/dL (0.55-1.3)
[2023-07-21 14:33] VITALS: BP 170/87
== END 2023-07-21 14:34 | disposition home or self-care (01) ==
LOC: JER 10:39
DX: R20.2 Paresthesia of skin (principal)
CPT/HCPCS: 36415; 71046-TC-FY; 80048; 80053; 81003; 83735; 84484; 85025; 87086; 93005; 93010; 99285-25

== ENCOUNTER 2024-10-30 13:40 | Emergency (ER) | payer OTHER ==
[2024-10-30 13:46] VITALS: BP 172/79; PULSE 76; RESP 18; TEMP 98; BMI 33.4
== END 2024-10-30 15:08 | disposition home or self-care (01) ==
LOC: JERFT 13:40 → JER 13:40 → JERFT 15:08
DX: H10.213 Acute toxic conjunctivitis, bilateral (principal); Y77.11 Contact lens associated with adverse incidents
CPT/HCPCS: 99283-25